=== PATIENT | male | born 1980 | race Native Hawaiian/Other Pacific Islander ===

== ENCOUNTER 2020-09-20 08:20 | Outpatient (CLI) | payer OTHER | END 2020-09-20 21:39 | disposition home or self-care (01) | LOC: INF 08:20 | PROVIDERS: ATTEND Internal Medicine Endocrinology, Diabetes & Metabolism | DX: Z23 Encounter for immunization (principal) | CPT/HCPCS: 96372 ==

== ENCOUNTER 2020-10-18 07:58 | Outpatient (CLI) | payer OTHER | END 2020-10-18 23:08 | disposition home or self-care (01) | LOC: INF 07:58 | PROVIDERS: ATTEND Internal Medicine Endocrinology, Diabetes & Metabolism | DX: Z23 Encounter for immunization (principal) | CPT/HCPCS: 96372 ==